=== PATIENT | female | born 1985 | race Caucasian/White ===

== ENCOUNTER 2018-06-19 11:01 | Emergency (ER) | payer MEDICAID, OTHER | END 2018-06-19 12:09 | disposition home or self-care (01) | LOC: MADERS 11:01 | DX: J06.9 Acute upper respiratory infection, unspecified (principal); B20 Human immunodeficiency virus [HIV] disease | CPT/HCPCS: 99283 ==

== ENCOUNTER 2019-09-02 08:09 | Emergency (ER) | payer SELFPAY | END 2019-09-02 08:45 | disposition home or self-care (01) | LOC: MADERS 08:09 | DX: L25.9 Unspecified contact dermatitis, unspecified cause (principal); F17.210 Nicotine dependence, cigarettes, uncomplicated; Z21 Asymptomatic human immunodeficiency virus [HIV] infection status | CPT/HCPCS: 99282 ==

== ENCOUNTER 2020-07-18 23:55 | Emergency (ER) | payer SELFPAY ==
[2020-07-19] MEDS ORDERED: Ketorolac Tromethamine 60 MG/2 ML VIAL ONE (00:30)
[2020-07-19] MEDS ORDERED: cefTRIAXone\\ROCEPHIN 1 GM VIAL ONE (00:30)
[2020-07-19] MEDS ORDERED: Clindamycin 150 MG CAP ONE (00:30)
[2020-07-19] MEDS ORDERED: Azithromycin 250 MG TAB ONE (00:30)
[2020-07-19] MEDS ORDERED: Water For Inject, Bacteriostat 30 ML ONE (00:31)
[2020-07-19 00:44] LABS: Pregnancy Test - Urine (BHCG) Negative (Negative)
[2020-07-19 00:45] LABS: Specific Gravity 1.025 (1.002-1.036)
[2020-07-19 00:46] LABS: Pregu Control Background? CLEAR/WHITE (CLR/WHITE); Pregu Control Bar Appear? YES (CONTROL BAR)
[2020-07-19 00:50] LABS: Bilirubin Negative (Negative); Blood, Urine Negative (Negative); Clarity Clear (Clear); Glucose, Urine (Dipstick) Negative (Negative); Ketone, Urine Negative (Negative); Leukocyte Negative (Negative); Nitrite Negative (Negative); Protein, Urine (Dipstick) Negative (Neg-Trace)
[2020-07-19 00:58] LABS: Specific Gravity, Urine 1.025 (1.002-1.036)
== END 2020-07-19 01:17 | disposition home or self-care (01) ==
LOC: MADERS 23:55
DX: A64 Unspecified sexually transmitted disease (principal); L03.115 Cellulitis of right lower limb; Z21 Asymptomatic human immunodeficiency virus [HIV] infection status; F17.210 Nicotine dependence, cigarettes, uncomplicated
CPT/HCPCS: 81003; 81025; 87480; 87491; 87510; 87591; 87660; 96372; 99283; J0696; J1885

== ENCOUNTER 2020-10-10 00:33 | Emergency (ER) | payer MEDICAID, SELFPAY ==
[2020-10-10 01:01] LABS: Mean Corpuscular HGB CONC 32.1 g/dL (32.0-36.0); Mean Corpuscular Hemoglobin 29.4 pg (27.0-31.0); Mean Corpuscular Volume 91.6 fL (78.0-98.0); Mean Platelet Volume 7.2 fL (7.4-10.4); Platelet Count 306 thou/uL (130-400); RBC Distribution Width 11.4 % (11.5-14.5); Red Blood Cell (RBC) Count 5.11 mill/uL (4.20-5.40); White Blood Cell (WBC) Count 11.4 thou/uL (4.8-10.8)
[2020-10-10 01:13] LABS: Band 1 % (5-11); Eosinophils 8 % (0-10); Large Platelets SLIGHT; Lymphocytes 34 % (21-51); MDiff Complete? YES; Monocytes 4 % (0-10); Neutrophil 53 % (42-75); Platelet Morphology Comment Appears Adequate; RBC Morphology Normal
[2020-10-10] MEDS ORDERED: Aspirin Chewable 81 MG TAB ONE (01:19)
[2020-10-10] MEDS ORDERED: Nitroglycerin 2% Ointment 1 INCH/1 GM Packet ONE (01:19)
[2020-10-10 01:25] LABS: ALT (SGPT) 41 U/L (8-55); AST (SGOT) 18 U/L (5-34); Albumin 4.2 g/dL (3.5-5.0); Alkaline Phosphatase 73 U/L (40-110); Anion Gap 16 mmol/L (10-20); BUN (Urea Nitrogen) 19 mg/dL (7.0-18.7); Bilirubin, Total 0.3 mg/dL (0.2-1.2); Calc. Creatinine Clearance 0 mL/min (70-130); Calcium 9.3 mg/dL (7.8-10.44); Carbon Dioxide 22 mmol/L (22-29); Chloride 109 mmol/L (98-107); Glucose 112 mg/dL (70-105); Potassium 4.2 mmol/L (3.5-5.1); Protein, Total 7.2 g/dL (6.0-8.3); Sodium 143 mmol/L (136-145)
[2020-10-10 04:15] LABS: Troponin I Less than 0.010 ng/mL (< 0.028)
--- NOTE | 2020-10-10 08:00 | RAD ---
2 view chest: [10/10/2020] Comparison:05/05/2017 HISTORY: Chest pain and congestion FINDINGS: No pneumothorax, pleural fluid, focal consolidation, or alveolar edema. Heart and mediastin al contours are stable. IMPRESSION: No acute findings.
== END 2020-10-10 04:35 | disposition home or self-care (01) ==
LOC: MADERS 00:33
DX: R07.9 Chest pain, unspecified (principal); F17.210 Nicotine dependence, cigarettes, uncomplicated; Z21 Asymptomatic human immunodeficiency virus [HIV] infection status; E66.01 Morbid (severe) obesity due to excess calories
CPT/HCPCS: 36415; 71046; 80053; 82550; 84484; 85025; 85379; 93005; J2997

== ENCOUNTER 2022-06-16 16:08 | Emergency (ER) | payer MEDICAID ==
[2022-06-16] MEDS ORDERED: Ketorolac Tromethamine 30 MG/ML VIAL ONE (17:54)
[2022-06-16] MEDS ORDERED: Lactated Ringer's 2,000 ML ONE (17:54)
[2022-06-16] MEDS ORDERED: Ondansetron PF 4 MG/2 ML Vial ONE (17:54)
[2022-06-16 18:02] LABS: Bilirubin Negative (Negative); Blood, Urine Negative (Negative); Clarity Clear (Clear); Glucose, Urine (Dipstick) Negative (Negative); Ketone, Urine Trace mg/dL (Negative); Leukocyte Negative (Negative); Nitrite Negative (Negative); Protein, Urine (Dipstick) Trace mg/dL (Neg-Trace); Specific Gravity, Urine 1.025 (1.005-1.030); Urobilinogen 0.2 mg/dL (Less than 2)
[2022-06-16 18:03] LABS: Pregnancy Test - Urine (BHCG) Negative (Negative)
[2022-06-16 18:04] LABS: Pregu Control Background? CLEAR/WHITE (CLR/WHITE); Pregu Control Bar Appear? YES (CONTROL BAR); Specific Gravity 1.025 (1.002-1.036)
[2022-06-16 18:15] LABS: ALT (SGPT) 47 U/L (8-55); AST (SGOT) 20 U/L (5-34); Albumin 4.3 g/dL (3.5-5.0); Alkaline Phosphatase 85 U/L (40-110); Anion Gap 14 mmol/L (10-20); BUN (Urea Nitrogen) 13 mg/dL (7.0-18.7); Bilirubin, Total 1.1 mg/dL (0.2-1.2); CK (CPK) 61 U/L (29-168); Calc. Creatinine Clearance 0 mL/min (70-130); Calcium 9.2 mg/dL (7.8-10.44); Carbon Dioxide 21 mmol/L (22-29); Chloride 104 mmol/L (98-107); Estimated GFR 100; Globulin 4.1 g/dL (2.4-3.5); Glucose 108 mg/dL (70-105); Lipase 30 U/L (8-78); Magnesium 1.8 mg/dL (1.6-2.6); Potassium 3.9 mmol/L (3.5-5.1); Protein, Total 8.4 g/dL (6.0-8.3); Sodium 135 mmol/L (136-145)
[2022-06-16 18:31] LABS: Eosinophils 2 % (0-10); Hemoglobin 16.4 g/dL (12.0-16.0); Lymphocytes 8 % (21-51); MDiff Complete? YES; Manual Diff?? YES; Mean Corpuscular Hemoglobin 29.1 pg (27.0-31.0); Mean Corpuscular Volume 88.2 fl (78.0-98.0); Mean Platelet Volume 7.8 fL (7.4-10.4); Metamyelocyte 1 % (0-0); Monocytes 1 % (0-10); Neutrophil 85 % (42-75); Platelet Count 203 thou/uL (130-400); Platelet Morphology Comment Appears Adequate; RBC Distribution Width 11.9 % (11.5-14.5); RBC Morphology Normal; Reactive Lymphocytes 3 % (0-10); Red Blood Cell (RBC) Count 5.65 mill/uL (4.20-5.40); White Blood Cell (WBC) Count 14.3 thou/uL (4.8-10.8)
[2022-06-16] MEDS ORDERED: Acetaminophen 500 MG TAB ONE (19:13)
[2022-06-16] MEDS ORDERED: Sodium Chloride 0.9% 50 ML ONE (19:32)
[2022-06-16] MEDS ORDERED: Promethazine HCl 25 MG/ML VIAL ONE (19:32)
== END 2022-06-16 20:28 | disposition home or self-care (01) ==
LOC: MADERS 16:08
DX: R11.2 Nausea with vomiting, unspecified (principal); R19.7 Diarrhea, unspecified; E86.0 Dehydration; F17.210 Nicotine dependence, cigarettes, uncomplicated; Z20.822 Contact with and (suspected) exposure to COVID-19
CPT/HCPCS: 71045; 80053; 81003; 81025; 82550; 83605; 83690; 83735; 84443; 84484; 85025; 87040; 87804; 93005; 94760; 96361; 96365; 96375; J1885; J2405; J2550; J7120; U0003; U0005

== ENCOUNTER 2023-02-16 07:36 | Emergency (ER) | payer OTHER ==
[2023-02-16] MEDS ORDERED: Acetaminophen 500 MG TAB ONE (08:14)
== END 2023-02-16 08:22 | disposition home or self-care (01) ==
LOC: MADERS 07:36
DX: R51.9 Headache, unspecified (principal); B20 Human immunodeficiency virus [HIV] disease; Z79.899 Other long term (current) drug therapy; F17.290 Nicotine dependence, other tobacco product, uncomplicated; F17.210 Nicotine dependence, cigarettes, uncomplicated
CPT/HCPCS: 99283

== ENCOUNTER 2023-03-22 22:49 | Emergency (ER) | payer OTHER, SELFPAY | END 2023-03-22 23:31 | disposition left against medical advice (07) | LOC: MADERS 22:49 | DX: O26.893 Other specified pregnancy related conditions, third trimester (principal); R10.2 Pelvic and perineal pain; O99.333 Smoking (tobacco) complicating pregnancy, third trimester; F17.210 Nicotine dependence, cigarettes, uncomplicated; O98.713 Human immunodeficiency virus [HIV] disease complicating pregnancy, third trimester; B20 Human immunodeficiency virus [HIV] disease; Z3A.29 29 weeks gestation of pregnancy | CPT/HCPCS: 99284 ==

== ENCOUNTER 2023-05-31 06:57 | Emergency (ER) | payer MEDICAID, SELFPAY ==
[2023-05-31] MEDS ORDERED: Sodium Chloride 0.9% 0 ML ONE (07:17)
[2023-05-31] MEDS ORDERED: Sodium Chloride 0.9% 1,000 ML ONE ×2 (07:21)
== END 2023-05-31 08:12 | disposition short-term general hospital (02) ==
LOC: MADERS 06:57
DX: O42.92 Full-term premature rupture of membranes, unspecified as to length of time between rupture and onset of labor (principal); O77.0 Labor and delivery complicated by meconium in amniotic fluid; O99.333 Smoking (tobacco) complicating pregnancy, third trimester; Z3A.38 38 weeks gestation of pregnancy
CPT/HCPCS: 99284; J7050

== ENCOUNTER 2025-04-12 15:41 | Emergency (ER) | payer OTHER, SELFPAY | END 2025-04-12 16:29 | disposition home or self-care (01) | LOC: MADERS 15:41 | DX: R21 Rash and other nonspecific skin eruption (principal); F17.210 Nicotine dependence, cigarettes, uncomplicated | CPT/HCPCS: 99282 ==